=== PATIENT | male | born 2000 | race Caucasian/White ===

== ENCOUNTER 2024-07-16 18:58 | Emergency (ER) | payer OTHER, SELFPAY ==
--- NOTE | ~2024-07-16 | CT_ITS ---
EXAMINATION: CT brain wo con DATE: 07/16/2024 20:02 INDICATION: Head injury. TECHNIQUE: Computed tomography (CT) of the head was performed without intravenous contrast. The mA wa s adjusted according to patient size. Iterative reconstruction technique was employed. The dose-lengt h product was 681.00 mGy-cm. COMPARISON: None FINDINGS: There is no intracranial hemorrhage, acute infarction, or abnormal intracranial mass lesion . The ventricles are normal in size. The orbits are normal. There is mild mucosal thickening in the p aranasal sinuses. The mastoid air cells are normal. IMPRESSION: 1. Normal brain. Reviewed, dictated and finalized at location A. IMPRESSION: 1. Normal brain.
[2024-07-16 19:01] VITALS: BP 152/99; PULSE 97; RESP 15; TEMP 36.4; O2SAT 100
--- NOTE | 2024-07-16 19:56 | ED.HEATRA ---
HPI - Head Injury General Chief complaint: Head Injury Stated complaint: Head injury Time Seen by Provider: 07/16/24 19:31 History of Present Illness HPI Narrative: 23-year-old male presents to the emergency department for head injury that occurred 2 hours prior to arrival. Patient states he was playing softball was a picture when the batter hit the ball into the patient's left ear. The patient states he did not lose consciousness. He is not anticoagulated. He is reporting pain and swelling to his left ear along with bleeding. Denies tinnitus or hearing loss. Denies neck pain or back pain, other injuries acquired. Tdap up-to-date. Related Data Allergies Allergy/AdvReac Type Severity Reaction Status Date / Time No Known Allergies Allergy Verified 07/16/24 19:06 Review of Systems Review of Systems: All systems reviewed & are unremarkable except as noted in HPI and below Exam Narrative: GENERAL: Well-appearing, well-nourished, and in no acute distress. HEAD: Normocephalic, atraumatic. EYES: PERRLA and EOMI. ENT: Left ear with diffuse circular hematoma, approximately 3 mm laceration to the helix and a 5 mm laceration to the antihelix, actively oozing blood. Canal normal. Scant amount of blood on the left TM which may be perforation NECK: No midline cervical spinous tenderness, step-offs or deformities BACK: No midline thoracolumbar spinous tenderness, step-offs or deformities CHEST: Clear to auscultation. No respiratory distress. HEART: Regular rate and rhythm. No murmur heard. Normal peripheral pulses. EXTREMITIES: Normal range of motion. No edema. SKIN: Warm, dry, no rash. NEURO: No focal deficits. Alert and oriented x3 Course Vital Signs Vital signs: Vital Signs Temperature 97.6 F 07/16/24 19:01 Pulse Rate 97 07/16/24 19:01 Respiratory Rate 15 07/16/24 19:01 Blood Pressure 152/99 H 07/16/24 19:01 Pulse Oximetry 100 07/16/24 19:01 Oxygen Delivery Room Air 07/16/24 19:01 Temperature 97.6 F 07/16/24 19:01 Pulse Rate 97 07/16/24 19:01 Respiratory Rate 15 07/16/24 19:01 Blood Pressure 152/99 H 07/16/24 19:01 Pulse Oximetry 100 07/16/24 19:01 Oxygen Delivery Room Air 07/16/24 19:55 Procedures Laceration Laceration 1: Date: 07/16/24 Time: 22:40 Side (If applicable): left Size (cm): 0.3 Description: linear Depth: simple, single layer Local Anesthetic: lidocaine 1% Amount of anesthesia used (mL): 1 Pre-repair: wound explored, irrigated and irrigated extensively ====== Skin Level ====== Skin layer closed with: nylon Size (cm): 6-0 Number of sutures: 1 Technique: simple, interrupted ====== Subcutaneous Layer ====== ====== Muscle Layer ====== ====== Tendon Layer ====== Laceration 2: Date: 07/16/24 Time: 22:40 Side (If applicable): left Size (cm): 0.5 Description: irregular Depth: simple, single layer Local Anesthetic: lidocaine 1% Amount of anesthesia used (mL): 1 Pre-repair: wound explored, irrigated and irrigated extensively ====== Skin Level ====== Skin layer closed with: nylon Size (cm): 6-0 Number of sutures: 2 ====== Subcutaneous Layer ====== ====== Muscle Layer ====== ====== Tendon Layer ====== Laceration 3: Date: 07/16/24 Time: 22:40 Side (If applicable): left Size (cm): 1 Description: linear Depth: simple, single layer Amount of anesthesia used (mL): 1 Pre-repair: wound explored, irrigated and irrigated extensively ====== Skin Level ====== Skin layer closed with: nylon Size (cm): 6-0 Number of sutures: 1 Technique: simple, interrupted ====== Subcutaneous Layer ====== ====== Muscle Layer ====== ====== Tendon Layer ====== Laceration 4:
[2024-07-16] MEDS: LIDOCAINE HCL 1% LOCAL INJ 10 ML VIAL INFILTRATE (20:31)
[2024-07-16 22:50] VITALS: BP 146/91; PULSE 85; RESP 16; TEMP 36.2; O2SAT 97
== END 2024-07-16 23:10 | disposition home or self-care (01) ==
PROVIDERS: Emergency Provider Physician Assistant
DX: S01.312A Laceration without foreign body of left ear, initial encounter (principal); W21.07XA Struck by softball, initial encounter; Y93.64 Activity, baseball
CPT/HCPCS: 12002; 70450; 99284; J2003